=== PATIENT | female | born 1980 | race Caucasian/White ===

== ENCOUNTER 2024-09-23 09:04 | Emergency (ER) | payer BC, SELFPAY ==
[2024-09-23 09:09] VITALS: BP 113/73
[2024-09-23 09:27] VITALS: BP 118/78
--- NOTE | 2024-09-23 09:29 | ED.GENMED ---
History of Present Illness
General
Chief Complaint: Flank Pain
Source: patient
Exam Limitations: none
Time Seen by Provider: 09/23/24 09:15
Nursing documentation reviewed up to this point in time: agreed with
History of Present Illness
History of Present Illness:
Patient is a 44-year-old female presenting to the emergency department for evaluation of right flank pain. She states that pain initially began sometime Thursday morning and was intermittent although today it became constant. She describes the pain
as 'searing'. The pain is primarily located in the back with little radiation into her right abdomen. Pain is worse when sitting still and seems somewhat relieved with movement. The patient experiences mild nausea but has not had any vomiting,
fever, dysuria, or hematuria. She denies any recent chest pain or shortness of breath.
The patient has a history of a kidney stone approximately five to six years ago, which presented with similar symptoms, but previously the pain was felt in the front and back, whereas now it is only in the back.
She denies any recent heavy lifting or activities out of the ordinary. The patient took ibuprofen yesterday, which offered temporary relief.
Review of Systems
Review of Systems
Allergies reviewed?: Yes
All Other Systems: ROS reviewed and negative except as documented in HPI and ROS
Phy Exam
Physical Exam
Physical Exam:
Vitals: Patient's vital signs are stable. Afebrile
General: Patient is well appearing, no acute distress
Skin: Warm and dry, no rashes or lesions
Head: Normocephalic, atraumatic
Eyes: Sclera nonicteric.
Throat: Protecting airway
Neck: Normal ROM, no cervical spine tenderness, no meningismus
Cardiac: Regular rate and rhythm, no murmurs.
Pulm: Normal respiratory effort, no wheezes, rales, rhonchi heard on exam
.
Abdomen: Abdomen soft. No reproducible tenderness in abdomen. No tenderness McBurney's point. Negative Palomo sign. No CVA tenderness or rash.
Extremities: No evidence of cyanosis or edema. Palpable DP pulses bilaterally
Neuro: AAOx3. Grossly intact.
Psychiatric: Normal affect.
Course
Orders/Labs/Results
Orders:
Orders
09/23/24 09:41
Abdomen/Pelvis wo Contrast CT [CT Abd/pelvis Wo Iv Cont] Urgent
Comment:
Reason For Exam: Right flank pain
0.9% Sodium Chloride 1000 ml [Nss] 1,000 ml IV BOLUS
Ketorolac [Toradol] 15 mg IV NOW STA
09/23/24 09:44
Test Result ONCE
09/23/24 09:47
Complete Blood Count/With Diff Urgent
Comprehensive Metabolic Panel Urgent
HCG, Serum Qualitative Screen Urgent
Lipase Urgent
Urinalysis Reflex To Culture Urgent
Date Specimen was Collected: 09/23/24
Time Specimen was Collected: 09:46
Urine Microscopic Reflex Cult Urgent
09/23/24 10:20
HYDROmorphone [Dilaudid] 0.5 mg IV NOW STA
Ondansetron Injectable [Zofran] 4 mg IV NOW STA
Abnormal Lab Results
09/23/24
09:47
MCH 31.4 H pg
(27.0-31.0)
Plt Count 406 H 10^3/uL
(130-400)
Absolute Monos (auto) 0.9 H 10^3/uL
(0.1-0.6)
Chloride 108 H mmol/L
(98-107)
Glucose 103 H mg/dl
(70-99)
Ur Occult Blood Reflex 2+ A
(Negative)
Urine Bacteria (Reflex) Few A
(Negative)
09/23/24 09:47
09/23/24 09:47
Vital Signs
Initial and Last Documented VS:
Initial Vital Signs
Temp Pulse Resp BP Pulse Ox
97.7 F 71 20 113/73 98
09/23/24 09:09 09/23/24 09:09 09/23/24 09:09 09/23/24 09:09 09/23/24 09:09
Last Documented Vital Signs
Temp Pulse Resp BP Pulse Ox
98 F 65 20 118/65 100
09/23/24 12:12 09/23/24 12:12 09/23/24 12:12 09/23/24 12:12 09/23/24 12:12
MDM/Problems Addressed
Differential Diagnosis Includes:
Not limited to: Renal colic, pyelonephritis, UTI, muscle strain/spasm, zoster, etc
MDM/Problems Addressed:
44-year-old female presenting with 4 days of progressively worsening right flank pain without associated vomiting, fevers, dysuria, shortness of breath. No known inciting injury/trauma. Patient has stable vital signs and is afebrile on arrival.
Physical exam as above. Patient appears somewhat uncomfortable due to pain however is nontoxic appearing. Cardio/pulmonary assessment unremarkable. Abdomen soft without any areas of focal tenderness. She has no CVA tenderness or evidence of rash
to suggest zoster. Differential broad and includes renal colic, UTI, pyelonephritis, muscle strain/spasm. Do not suspect PE or vascular catastrophe. Given patient is afebrile with complaints of abdominal pain�lower suspicion intra-abdominal
infectious process. ED plan: Labs, urinalysis, noncontrast CT scan abdomen/pelvis. Will treat pain and give IV fluids.
Update 10:20 AM: Labs reviewed CBC and chemistry without clinically normalities. No leukocytosis or renal insufficiency. Urinalysis without evidence of infection or RBCs noted. CT scan pending.
Update 11:45AM: CT scan without evidence of obstructing renal calculi or other acute findings. A few incidental findings noted and reviewed with patient - she was given copy of CT report to review with PCP. Do not feel dilation of pancreatic duct
contributing to symptoms today given location of discomfort as well as normal laboratory analysis including normal LFTs, bilirubin, and lipase.
Symptoms today possible MSK in nature. Feel stable for discharge with rest, NSAID, PCP f/u. Strict return precautions discussed. Patient comfortable with plan.
Chronic conditions affecting care:
History of kidney stones
Acute Exacerbation and/or Progression of Chronic Illness:
N/A
*Radiology
Radiology exam reviewed: radiology read reviewed
*Pulse Oximetry
SaO2: 98
Oxygen Mode of Delivery: Room air
Patient hypoxic: no
*EKG
Interpreted by ED Provider?: NA
*Track Fitter Interpretation
Rate: Track Fitter- N/A
*Critical Care Note
Total Time (30-74mins, 75-104mins- exclusive of procedures): Not Applicable
ED Attending Note
-
Portions of this chart may have been created with voice recognition software.� Occasional wrong word or��sound alike� substitutions may have occurred due to the inherent limitations of voice recognition software.
Discharge Plan
Departure
Patient Disposition: Home (Routine Discharge)
Date of Disposition: 09/23/24
Time of Disposition: 11:59
Patient with high blood pressure during this ER visit?: Yes
Condition: Good
Discharge Problem:
Right flank pain
Instructions: Flank Pain (DC)
Referrals:
Damari Ibarra NP [Family Provider, General] - Follow up in 2-3 days
Activity Restrictions/Additional Instructions:
RETURN TO THE EMERGENCY DEPARTMENT WITH ANY FEVERS, CHILLS, PERSISTENT/WORSENING FLANK PAIN, SEVERE ABDOMINAL PAIN, INTRACTABLE NAUSEA/VOMITING, INABILITY TO URINATE, SHORTNESS OF BREATH, OR ANY OTHER CONCERNS
- As discussed�your lab work and urinalysis showed no acute abnormalities the emergency department. Your CT scan showed no evidence of obstructing kidney stones. There was noted to be a mild dilatation of your pancreatic duct�please follow with
your primary care for further imaging as needed.
- Continue to take Tylenol and/or Motrin as needed for pain at home. You can apply topical lidocaine patches and ice/heat.
- Follow-up with your primary care for further evaluation/management and to ensure that your symptoms are improving
Monitor your symptoms closely and return to the emergency department with any acute worsening/new symptoms or any other concerns
Interventions
Interventions:
*Risk Screen - Suicide Last Done: 09/23/24 09:09
*General Assessment Last Done: 09/23/24 09:30
*Neglect/Abuse Screening Last Done: 09/23/24 09:09
*ED- Fall Risk Assessment Last Done: 09/23/24 09:30
*ED COVID-19 Vaccine History Last Done: 09/23/24 09:30
*Nursing Disposition Last Done: 09/23/24 12:12
ZC-Krddia-Uksonfmyci Assessment Last Done: 09/23/24 09:30
ED-Female Genitourinary Assessment Last Done: 09/23/24 09:30
Discharge Date and Time
Discharge Date/Time: 09/23/24 12:14
Print Language: [place]
[2024-09-23] MEDS: NSS 1000 IV (09:49)
[2024-09-23] MEDS: TORADOL 15 MG IV (09:52)
[2024-09-23 09:57] LABS: % Basophils 1.1 % (0-2); % Eosinophils 3.1 % (0-6); % Immature Granulocytes 0.3 % (0-0.5); % Lymphocytes 26.7 % (20.5-51.1); % Neutrophils 59.8 % (42.2-75.2); Absolute Basophils 0.1 10^3/uL (0-0.2); Absolute Eosinophils 0.3 10^3/uL (0-0.7); Absolute Lymphocytes 2.6 10^3/uL (1.2-3.4); Absolute Monocytes 0.9 10^3/uL (0.1-0.6); Absolute Neutrophils 5.8 10^3/uL (1.4-6.5); Hematocrit 39.9 % (37.0-47.0); Hemoglobin 13.8 g/dL (12.0-16.0); Mean Corp Hgb Conc. 34.6 g/dL (33.0-37.0); Mean Corpuscular Hgb 31.4 pg (27.0-31.0); Mean Corpuscular Volume 90.9 fL (81.0-99.0); Mean Platelet Volume 9.3 fL (7.4-10.4); Nucleated Red Blood Cells % 0 %; Platelet Count 406 10^3/uL (130-400); Red Blood Cell Count 4.39 10^6/uL (4.20-5.40); Red Cell Dist. Width 11.9 % (11.5-14.5); White Blood Cell Count 9.7 10^3/uL (4.8-10.8)
[2024-09-23 10:00] LABS: Urine Albumin Negative (Neg - Trace); Urine Bilirubin Negative (Negative); Urine Character Clear (Clear); Urine Color Yellow; Urine Glucose Negative (Negative); Urine Ketone Negative (Negative); Urine Leukocyte Negative (Negative); Urine Nitrite Negative (Negative); Urine Occult Blood 2+ (Negative); Urine Urobilinogen Negative (Neg - 1+)
[2024-09-23 10:16] LABS: ALT (SGPT) 17 U/L (0-35); AST (SGOT) 19 U/L (14-36); Albumin 4.7 g/dl (3.5-5.0); Alkaline Phosphatase 76 U/L (38-126); Blood Urea Nitrogen 16 mg/dl (7-17); Carbon Dioxide 27 mmol/L (22-30); Chloride 108 mmol/L (98-107); Estimated Creatinine Clearance 106 ml/min; Glucose 103 mg/dl (70-99); Lipase 153 U/L (23-300); Potassium 4.4 mmol/L (3.5-5.1); Sodium 142 mmol/L (135-145); Total Bilirubin 0.4 mg/dl (0.2-1.3); Total Protein 7.8 g/dl (6.3-8.2); eGFR > 60.00
[2024-09-23 10:25] LABS: Urine Bacteria Few (Negative); Urine Red Blood Cell 0-2 /HPF (0-2); Urine White Cell 0-2 /HPF (0-5)
[2024-09-23 10:26] LABS: HCG, Serum Qualitative Screen Negative
[2024-09-23] MEDS: ZOFRAN 4 MG IV (10:31)
[2024-09-23] MEDS: DILAUDID 0.5 MG IV (10:31)
[2024-09-23 11:13] VITALS: BP 118/65
[2024-09-23 12:12] VITALS: BP 118/65
== END 2024-09-23 12:14 | disposition home or self-care (01) ==
LOC: EMR 09:04
PROVIDERS: Physician Assistant; EMERGENCY PHYSICIAN Emergency Medicine; FAMILY PHYSICIAN Nurse Practitioner Adult Health
DX: R10.9 Unspecified abdominal pain (principal); Z87.442 Personal history of urinary calculi
CPT/HCPCS: 99284; 96374; 96375; 96361; 74176; 80053; 81003; 81015; 83690; 84703; 85025